=== PATIENT | male | born 1990 | race Hispanic/Latino ===

== ENCOUNTER 2022-10-24 19:43 | Emergency (ER) | payer OTHER ==
[~2022-10-24] VITALS: Ht 188 cm; Wt 124.7 kg
[2022-10-24] MEDS ORDERED: 0.9%NACL 1000ML 1,000 ML IV ONE (21:44)
[2022-10-24] MEDS ORDERED: ACETAMINOPHEN 500 MG TABLET ONE (21:44)
[2022-10-24 21:57] LABS: BASOPHILS % (AUTO) 0.3 % (0.0-5.0); EOSINOPHILS % (AUTO) 0.1 % (0.0-8.0); HEMATOCRIT 48.9 % (42-54); LYMPHOCYTES % (AUTO) 12.9 % (21.0-51.0); MEAN CORPUSCULAR HEMOGLOBIN 28.9 pg (27.0-33.0); MEAN CORPUSCULAR HGB CONC 35.4 g/dL (32.0-36.0); MEAN CORPUSCULAR VOLUME 81.6 fL (79-99); MONOCYTES % (AUTO) 8.2 % (3.0-13.0); PLATELET COUNT (AUTO) 182 K/uL (130-400); RED BLOOD CELL COUNT(AUTO) 5.99 MIL/uL (4.50-6.20); RED CELL DISTRIBUTION WIDTH 12.3 % (11.0-15.5)
[2022-10-24] MEDS ORDERED: ACETAMINOPHEN 500 MG TABLET PO ONE (22:00)
[2022-10-24] MEDS ORDERED: 0.9%NACL 1000ML 1,000 ML IV SCH (22:00)
[2022-10-24 22:10] LABS: POTASSIUM 3.8 mmol/L (3.5-5.1)
[2022-10-24 22:15] LABS: ALBUMIN 3.4 g/dL (3.5-5.0); TOTAL PROTEIN, SERUM 8.6 g/dL (6.0-8.3)
[2022-10-24] MEDS ORDERED: ZOSYN 3.375GM +NS 50ML IV ONE (22:30)
[2022-10-24 23:07] VITALS: BP 138/80
[2022-10-24 23:17] LABS: APPEARANCE,URINE CLOUDY (CLEAR); BILIRUBIN,URINE NEGATIVE (NEGATIVE); COLOR,URINE YELLOW (YELLOW); GLUCOSE, URINE (UA) >=1000 mg/dL (NEGATIVE); KETONES,URINE 5 mg/dL (NEGATIVE); LEUKOCYTE ESTERASE ,URINE 75 Leu/uL (NEGATIVE); NITRATE,URINE NEGATIVE (NEGATIVE); OCCULT BLOOD,URINE NEGATIVE (NEGATIVE); PROTEIN,URINE 200 mg/dL (NEGATIVE); UROBILINOGEN,URINE 12 mg/dL (0.2-1.0)
[2022-10-24 23:19] LABS: SQUAMOUS EPITHELIAL CELL,UR RARE /HPF (0-2)
[2022-10-25] MEDS ORDERED: AMOX1TAB16 PO (00:11)
== END 2022-10-25 00:21 | disposition home or self-care (01) ==
LOC: EDH 19:43
DX: S31.25XA Open bite of penis, initial encounter (principal); W50.3XXA Accidental bite by another person, initial encounter; Y93.89 Activity, other specified; Y92.89 Other specified places as the place of occurrence of the external cause; Y99.8 Other external cause status
CPT/HCPCS: 99284; 96365; 96361; 80053; 85025; 87040 ×2; 87076; 87077; 87088; 87186; 83605; 81001; 36415; 87070; J7030; J2543